=== PATIENT | male | born 1970 | race Caucasian/White ===

== ENCOUNTER 2022-06-06 09:20 | Emergency (ER) | payer OTHER ==
[~2022-06-06] VITALS: Ht 157.5 cm; Wt 63.5 kg
[2022-06-06 09:25] VITALS: BP 135/90
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
--- NOTE | 2022-06-06 09:45 | NUR ---
BACK FROM XRAY, RESUMED ED MONITORING.
[2022-06-06 10:09] LABS: BASOPHILS % (AUTO) 0.4 % (0.0-2.0); EOSINOPHILS # (AUTO) 0.2 K/uL (0-0.4); EOSINOPHILS % (AUTO) 2.2 % (0.0-4.0); HEMATOCRIT 37.5 % (36-52); HEMOGLOBIN 12.8 g/dL (12.0-18.0); MEAN CORPUSCULAR HEMOGLOBIN 29 pg (27-31); MEAN CORPUSCULAR HGB CONC 34 g/dL (33-37); MEAN CORPUSCULAR VOLUME 84.7 fL (80-94); MONOCYTES # (AUTO) 0.8 K/uL (0.8-1.0); MONOCYTES % (AUTO) 9.3 % (1.7-9.3); NEUTROPHILS # (AUTO) 5.5 K/uL (1.8-7.7); NEUTROPHILS % (AUTO) 64.1 % (42.2-75.2); PLATELET COUNT (AUTO) 425 K/uL (140-450); RED BLOOD CELL COUNT(AUTO) 4.43 MIL/uL (4.20-6.10); RED CELL DISTRIBUTION WIDTH 13.3 % (11.6-13.7); WHITE BLOOD COUNT (AUTO) 8.5 K/uL (4.8-10.8)
[2022-06-06 10:20] LABS: ANION GAP 13.3 (8-16); CARBON DIOXIDE 25.4 mmol/L (21-32); CHLORIDE 104 mmol/L (98-107); CREATININE 1.2 mg/dL (0.6-1.3); GFR ARICAN-AMERICAN 82 mL/min (>90); GLUCOSE 204 mg/dL (74-106); POTASSIUM 3.7 mmol/L (3.5-5.1); SODIUM SERUM 139 mmol/L (136-145); UREA NITROGEN, BLOOD 23 mg/dL (7-18)
[2022-06-06 10:29] LABS: ALBUMIN 3.3 g/dL (3.4-5.0); ASPARTATE AMINOTRANSFERASE 11 U/L (15-37); TOTAL BILIRUBIN 0.3 mg/dL (0.0-1.0)
[2022-06-06] MEDS ORDERED: KETOROLAC 30 MG/ML VIAL IM ONE (11:00)
[2022-06-06] MEDS ORDERED: IBUP-1842 PO (11:07)
[2022-06-06] MEDS ORDERED: DICL100G5 TP (11:07)
--- NOTE | 2022-06-06 11:20 | NUR ---
Patient discharged with v/s stable. Written and verbal after care instructions given and explained. Patient alert, oriented and verbalized understanding of instructions. Ambulatory with steady gait. All questions addressed prior to discharge. ID band removed. Patient advised to follow up with PMD. Rx of MOTRIN, DICLOFENAC given. Patient educated on indication of medication including possible reaction and side effects. Opportunity to ask questions provided and answered.
== END 2022-06-06 11:20 | disposition home or self-care (01) ==
LOC: MED 09:20
DX: R07.89 Other chest pain (principal); I10 Essential (primary) hypertension; I25.10 Atherosclerotic heart disease of native coronary artery without angina pectoris; E11.9 Type 2 diabetes mellitus without complications; Z79.4 Long term (current) use of insulin; Z79.899 Other long term (current) drug therapy; V49.88XA Car occupant (driver) (passenger) injured in other specified transport accidents, initial encounter; Y93.89 Activity, other specified; Y92.89 Other specified places as the place of occurrence of the external cause; Y99.8 Other external cause status
CPT/HCPCS: 36415; 71046; 80053; 84484; 85025; 93005; 99285; J1885